=== PATIENT | female | born 1985 | race Asian ===

== ENCOUNTER 2019-01-02 08:27 | Inpatient (IN) | payer OTHER ==
[~2019-01-02] VITALS: Ht 154.9 cm; Wt 64.4 kg
[2019-01-02 08:43] VITALS: Ht 154.9 cm; Wt 64.4 kg
[2019-01-02] MEDS ORDERED: LACTATED RINGER'S 1,000 ML IV SCH ×2 (09:38→17:29)
[2019-01-02] MEDS ORDERED: OXYTOCIN 30 UNITS/LR 500 ML IV PRN ×2 (10:00→17:30)
[2019-01-02] MEDS ORDERED: CEFAZOLIN 2 GM/50 ML (PMX) 50 ML IVPB SCH (10:00)
[2019-01-02] MEDS ORDERED: CARBOPROST 250 MCG INJ IM PRN ×2 (10:00→17:30)
[2019-01-02] MEDS ORDERED: METHYLERGONOVINE 0.2 MG INJ IM PRN ×2 (10:00→17:30)
[2019-01-02] MEDS ORDERED: MISOPROSTOL 200 MCG TAB PR PRN ×2 (10:00→17:30)
[2019-01-02] MEDS ORDERED: OXYTOCIN 30 UNITS/LR 500 ML IV SCH ×2 (10:00→17:29)
[2019-01-02] MEDS ORDERED: OXYTOCIN 30 UNITS/LR 500 ML BAG IV ONE (15:30)
[2019-01-02] MEDS ORDERED: OXYTOCIN 10 UNIT INJ ONE (15:32)
[2019-01-02] MEDS ORDERED: ONDANSETRON 4 MG INJ ONE (15:32)
[2019-01-02] MEDS ORDERED: morphine SULFATE/PF (10 MG/10 ML) INJ ONE (15:32)
[2019-01-02] MEDS ORDERED: PHENYLephrine 10 MG INJ ONE ×2 (15:52→16:16)
[2019-01-02] MEDS ORDERED: METOCLOPRAMIDE 10 MG INJ ONE (16:09)
[2019-01-02] MEDS ORDERED: LANOLIN HPA 1 PKT TOP PRN (17:30)
[2019-01-02] MEDS ORDERED: KETOROLAC 30 MG INJ IV PRN (17:30)
[2019-01-02] MEDS ORDERED: ONDANSETRON 4 MG INJ IV PRN (17:30)
[2019-01-02] MEDS ORDERED: DIPHENHYDRAMINE 50 MG INJ IV PRN (17:30)
[2019-01-02] MEDS ORDERED: morphine 2 MG INJ IV PRN ×2 (17:30)
[2019-01-02] MEDS ORDERED: METHYLERGONOVINE 0.2 MG TAB PO PRN (17:30)
[2019-01-02] MEDS ORDERED: NALOXONE (0.4 MG/ML) INJ IV PRN (17:30)
[2019-01-02 20:00] VITALS: BP 115/70; PULSE 81; RESP 18
[2019-01-02] MEDS: SENNA/DOCUSATE NA (8.6MG/50MG) TAB PO SCH (21:00)
[2019-01-03 00:06] VITALS: BP 112/57; PULSE 96; RESP 18
[2019-01-03 04:05] VITALS: BP 106/57; PULSE 110; RESP 18
[2019-01-03 07:50] VITALS: BP 104/59; PULSE 115; RESP 18
[2019-01-03] MEDS: SENNA/DOCUSATE NA (8.6MG/50MG) TAB PO SCH ×2 (09:00→21:39)
[2019-01-03] MEDS ORDERED: HYDROCODONE/APAP (5/325) TAB PO PRN (09:30)
[2019-01-03 16:00] VITALS: BP 96/52; PULSE 96; RESP 18
[2019-01-03] MEDS: IBUPROFEN 800 MG TAB PO PRN (18:22)
[2019-01-03 19:30] VITALS: BP 108/72; PULSE 90; RESP 19
[2019-01-04 04:00] VITALS: BP 99/60; PULSE 81; RESP 18
[2019-01-04] MEDS: IBUPROFEN 800 MG TAB PO PRN (05:56)
[2019-01-04 08:00] VITALS: BP 112/55; PULSE 82; RESP 16
[2019-01-04] MEDS: SENNA/DOCUSATE NA (8.6MG/50MG) TAB PO SCH ×2 (09:08→21:42)
[2019-01-04] MEDS: HYDROCODONE/APAP (5/325) TAB PO PRN ×3 (09:08→21:42)
[2019-01-04 16:00] VITALS: BP 114/72; PULSE 94; RESP 18
[2019-01-04 19:45] VITALS: BP 114/69; PULSE 88; RESP 19
[2019-01-05 03:36] VITALS: BP 114/80; PULSE 86; RESP 19
[2019-01-05] MEDS: IBUPROFEN 800 MG TAB PO PRN ×2 (03:36→11:42)
[2019-01-05 08:00] VITALS: BP 114/71; PULSE 80; RESP 18
[2019-01-05] MEDS: SENNA/DOCUSATE NA (8.6MG/50MG) TAB PO SCH (09:00)
[2019-01-05] MEDS ORDERED: MEASLES,MUMPS,RUBELLA VACCINE INJ SC* ONE (09:00)
[2019-01-05] MEDS ORDERED: DIPHTH/TET/ACEL PERTUSS (ADULT) 0.5 ML VIAL IM* ONE (09:00)
== END 2019-01-05 14:10 | disposition home or self-care (01) | DRG 788 ==
LOC: OBT 08:27 → L-D 08:27 → OBT 09:40 → L-D 09:51 → PP1 19:48
PROVIDERS: ADMIT Obstetrics & Gynecology; ATTEND Obstetrics & Gynecology
PROC: 10D00Z1 Extraction of Products of Conception, Low, Open Approach (ICD-10-PCS; principal; 2019-01-03)
PROC: 3E033VJ Introduction of Other Hormone into Peripheral Vein, Percutaneous Approach (ICD-10-PCS; 2019-01-03)
DX: O65.5 Obstructed labor due to abnormality of maternal pelvic organs (principal); O34.211 Maternal care for low transverse scar from previous cesarean delivery; O62.2 Other uterine inertia; O99.89 Other specified diseases and conditions complicating pregnancy, childbirth and the puerperium; N73.6 Female pelvic peritoneal adhesions (postinfective); Z3A.39 39 weeks gestation of pregnancy; Z37.0 Single live birth
CPT/HCPCS: 76815; 76818; 80048; 85025; 85610; 85730; 86592; 86850; 86900; 86901; 87340; 88305; 99464; G0463; J0690; J1885; J2210; J2274; J2370; J2405; J2590; J2765; J7120